=== PATIENT | male | born 1960 | race Caucasian/White ===

== ENCOUNTER 2019-10-18 15:50 | Emergency (ER) | payer MEDICAID ==
[~2019-10-18] VITALS: Ht 172.7 cm; Wt 84.1 kg
[2019-10-18] MEDS ORDERED: BENZOCAINE/MENTHOL LOZENGE PO ONE (16:45)
[2019-10-18] MEDS ORDERED: ACETAMINOPHEN 500 MG TABLET PO ONE (16:45)
[2019-10-18 18:05] VITALS: BP 148/83
== END 2019-10-18 18:25 | disposition home or self-care (01) ==
LOC: EMS 15:54
DX: U07.1 COVID-19 (principal); J02.8 Acute pharyngitis due to other specified organisms; B97.89 Other viral agents as the cause of diseases classified elsewhere; I10 Essential (primary) hypertension
CPT/HCPCS: 87430; 99283; U0003